=== PATIENT | male | born 1975 | race Caucasian/White ===

== ENCOUNTER → 2018-05-05 | Emergency (ER) | payer OTHER ==
[2018-05-06 00:22] LABS: ADD UMIC YES; UR ASCORBIC ACID 40 mg/dL (NEGATIVE); UR BILIRUBIN (Dip) NEGATIVE (NEGATIVE); UR BLOOD (Dip) 1+ mg/dL (NEGATIVE); UR CLARITY CLEAR (CLEAR); UR COLOR YELLOW (YELLOW); UR GLUCOSE (Dip) NEGATIVE (NEGATIVE); UR KETONES (Dip) NEGATIVE (NEGATIVE); UR LEUKOCYTE ESTERASE (Dip) NEGATIVE Leu/ul (NEGATIVE); UR NITRITE (Dip) NEGATIVE (NEGATIVE); UR RBC 1 /HPF (0-5); UR SPECIFIC GRAVITY (Dip) 1.021 (1.003-1.030); UR TOTAL PROTEIN (Dip) NEGATIVE (NEGATIVE); UR UROBILINOGEN (Dip) NEGATIVE (NEGATIVE); UR WBC 0 /HPF (0-5)
== END | disposition home or self-care (01) ==
LOC: FTE 22:43
DX: N50.812 Left testicular pain (principal); I10 Essential (primary) hypertension; E11.9 Type 2 diabetes mellitus without complications; Z79.84 Long term (current) use of oral hypoglycemic drugs
CPT/HCPCS: 76870; 81001; 87591; 99284-25

== ENCOUNTER 2018-06-24 21:11 | Observation (INO) | payer OTHER ==
[2018-06-24] MEDS: KETOROLAC 30 MG INJ IV (22:21)
[2018-06-24] MEDS: SOD CHLORIDE 0.9% 1,000 ML IV (22:21)
[2018-06-24] MEDS: ONDANSETRON 4 MG INJ IV ×2 (22:21→23:02)
[2018-06-24 22:24] LABS: WHITE BLOOD COUNT 7.9 10^3/ul (4.8-10.8)
[2018-06-24 22:24] LABS: HEMATOCRIT 48.4 % (42.0-52.0); HEMOGLOBIN 17.2 g/dl (14.0-18.0); MEAN CORPUSCULAR HEMOGLOBIN 29.3 pg (29.0-33.0); MEAN CORPUSCULAR HGB CONC 35.5 g/dl (32.0-37.0); MEAN CORPUSCULAR VOLUME 82.5 fl (82.0-101.0); MEAN PLATELET VOLUME 9.3 fl (7.4-10.4); PLATELET COUNT 320 10^3/UL (140-415); RED BLOOD COUNT 5.87 10^6/ul (4.70-6.10); RED CELL DISTRIBUTION WIDTH 12.1 % (11.5-14.5)
[2018-06-24 22:42] LABS: ADD MAN DIFF? YES; ALANINE AMINOTRANSFERASE 25 IU/L (13-69); ALBUMIN/GLOBULIN RATIO 1.35; ALKALINE PHOSPHATASE 93 IU/L (42-121); ANION GAP 15 (5-13); ASPARTATE AMINO TRANSFERASE 25 IU/L (15-46); BILIRUBIN,INDIRECT 0.5 mg/dl (0-1.1); BILIRUBIN,TOTAL 0.5 mg/dl (0.2-1.3); BLOOD UREA NITROGEN 16 mg/dl (7-20); CALCIUM 10.3 mg/dl (8.4-10.2); CARBON DIOXIDE 25 mmol/L (21-31); CHLORIDE 102 mmol/L (97-110); CREATININE 0.88 mg/dl (0.61-1.24); GLUCOSE 215 mg/dl (70-220); LIPASE 284 U/L (23-300); POTASSIUM 3.8 mmol/L (3.5-5.1); SODIUM 142 mmol/L (135-144); TOTAL PROTEIN 8.7 g/dl (6.1-8.1)
[2018-06-24 22:43] LABS: PARTIAL THROMBOPLASTIN TIME 27.6 Sec (23.0-35.0)
[2018-06-24 22:46] LABS: LACTIC ACID 5.8 mmol/L (0.5-2.0)
[2018-06-24] MEDS: morphine 4 MG/ML VIAL IV (22:57)
[2018-06-24] MEDS: SODIUM CHLORIDE 0.9% 1L BAG IV* (23:07)
[2018-06-24 23:30] LABS: ADD UMIC YES; UR ASCORBIC ACID NEGATIVE (NEGATIVE); UR BILIRUBIN (Dip) NEGATIVE (NEGATIVE); UR BLOOD (Dip) 2+ mg/dL (NEGATIVE); UR CLARITY CLEAR (CLEAR); UR COLOR YELLOW (YELLOW); UR GLUCOSE (Dip) 3+ mg/dL (NEGATIVE); UR KETONES (Dip) NEGATIVE (NEGATIVE); UR LEUKOCYTE ESTERASE (Dip) NEGATIVE Leu/ul (NEGATIVE); UR NITRITE (Dip) NEGATIVE (NEGATIVE); UR RBC 77 /HPF (0-5); UR SPECIFIC GRAVITY (Dip) 1.018 (1.003-1.030); UR TOTAL PROTEIN (Dip) NEGATIVE (NEGATIVE); UR UROBILINOGEN (Dip) NEGATIVE (NEGATIVE); UR WBC 0 /HPF (0-5)
[2018-06-24 23:34] LABS: GIANT THROMBO% (M) 1 % (0-0); LYMPHOCYTES #M 0.4 10^3/ul (0.8-2.9); LYMPHOCYTES % (M) 6 % (15-51); MONOCYTE #M 0.2 10^3/ul (0.3-0.9); MONOCYTES % (M) 3 % (0-11); PLATELET ESTIMATE NORMAL; SEGMENTED NEUTROPHILS (M) % 91 % (39-77); SMUDGE%M 11 % (0-0)
[2018-06-25 00:45] LABS: LACTIC ACID 2.4 mmol/L (0.5-2.0)
[2018-06-25] MEDS: HYDROmorphONE 1 MG/ML SYG IV (01:01)
[2018-06-25] MEDS: ONDANSETRON 4 MG INJ IV (01:01)
[2018-06-25] MEDS ORDERED: DOCUSATE SODIUM 100 MG CAP PO (02:30)
[2018-06-25] MEDS ORDERED: NACL 0.9% 3 ML SYG IV (02:30)
[2018-06-25] MEDS ORDERED: ONDANSETRON 4 MG INJ IV (02:30)
[2018-06-25] MEDS ORDERED: BISACODYL (EC) 5 MG TAB PO (02:30)
[2018-06-25 03:07] LABS: LACTIC ACID 1.1 mmol/L (0.5-2.0)
[2018-06-25] MEDS: CEFEPIME 2GM/50 ML (PMX) 50 ML IVPB (03:25)
[2018-06-25] MEDS: VANCOMYCIN 1 GM (PMX) 250 ML IVPB (04:00)
[2018-06-25 04:58] LABS: ADD MAN DIFF? NO
[2018-06-25 05:05] LABS: BASOPHILS % 0.1 % (0.0-2.0); HEMATOCRIT 43.1 % (42.0-52.0); HEMOGLOBIN 14.9 g/dl (14.0-18.0); LYMPHOCYTES # 0.7 10^3/ul (0.8-2.9); LYMPHOCYTES % 7.9 % (15.0-51.0); MEAN CORPUSCULAR HEMOGLOBIN 28.5 pg (29.0-33.0); MEAN CORPUSCULAR HGB CONC 34.6 g/dl (32.0-37.0); MEAN CORPUSCULAR VOLUME 82.6 fl (82.0-101.0); MEAN PLATELET VOLUME 9.4 fl (7.4-10.4); MONOCYTE # 0.2 10^3/ul (0.3-0.9); MONOCYTES % 2.1 % (0.0-11.0); NEUTROPHIL # 8.1 10^3/ul (1.6-7.5); NEUTROPHILS % 89.5 % (39.0-77.0); PLATELET COUNT 260 10^3/UL (140-415); RED BLOOD COUNT 5.22 10^6/ul (4.70-6.10)
[2018-06-25 05:05] LABS: WHITE BLOOD COUNT 9.1 10^3/ul (4.8-10.8)
[2018-06-25] MEDS: HYDROCODONE/APAP (5/325) TAB PO ×3 (05:10→18:40)
[2018-06-25] MEDS ORDERED: hydrALAzine 20 MG INJ IV (05:30)
[2018-06-25 05:50] LABS: ALANINE AMINOTRANSFERASE 28 IU/L (13-69); ALBUMIN 3.4 g/dl (3.3-4.9); ALBUMIN/GLOBULIN RATIO 1.09; ALKALINE PHOSPHATASE 64 IU/L (42-121); ANION GAP 11 (5-13); ASPARTATE AMINO TRANSFERASE 20 IU/L (15-46); BILIRUBIN,INDIRECT 0.5 mg/dl (0-1.1); BILIRUBIN,TOTAL 0.5 mg/dl (0.2-1.3); BLOOD UREA NITROGEN 12 mg/dl (7-20); CALCIUM 9.1 mg/dl (8.4-10.2); CARBON DIOXIDE 23 mmol/L (21-31); CHLORIDE 107 mmol/L (97-110); CREATININE 0.77 mg/dl (0.61-1.24); GLUCOSE 116 mg/dl (70-220); MAGNESIUM 1.7 mg/dl (1.7-2.5); POTASSIUM 4.2 mmol/L (3.5-5.1); SODIUM 141 mmol/L (135-144); TOTAL PROTEIN 6.5 g/dl (6.1-8.1)
[2018-06-25 06:10] LABS: THYROID STIMULATING HORMONE < 0.015 MIU/L (0.465-4.680)
[2018-06-25] MEDS: SOD CHLORIDE 0.9% 1,000 ML IV ×3 (06:36→16:45)
[2018-06-25 07:23] LABS: LACTIC ACID 1.4 mmol/L (0.5-2.0)
[2018-06-25] MEDS: [UNRECOGNIZED DRUG - REMARK] XX ×3 (08:00→23:24)
[2018-06-25] MEDS: FLUOXETINE 20 MG CAP PO ×3 (08:58→20:39)
[2018-06-25] MEDS: ATORVASTATIN 10 MG TAB PO (08:58)
[2018-06-25] MEDS ORDERED: NON-FORMULARY/PATIENT OWN MED (Lurasidone Hcl (Latuda) 80 MG) PO (09:00)
[2018-06-25] MEDS ORDERED: LISINOPRIL 10 MG TAB PO (09:00)
[2018-06-25 10:32] LABS: LACTIC ACID 2.2 mmol/L (0.5-2.0)
[2018-06-25 14:27] LABS: LACTIC ACID 2.5 mmol/L (0.5-2.0)
[2018-06-25] MEDS: LEVOFLOXACIN 500MG/D5W (PMX) 100 ML IVPB (15:13)
[2018-06-25] MEDS: LISINOPRIL 20 MG TAB PO (15:26)
[2018-06-25] MEDS: DOCUSATE SODIUM 100 MG CAP PO ×2 (15:26→20:45)
[2018-06-25] MEDS: ACETAMINOPHEN 325 MG TAB PO (16:52)
[2018-06-25 17:19] LABS: HIV 1&2 ANTIBODY NEGATIVE (NEGATIVE)
[2018-06-26] MEDS: SOD CHLORIDE 0.9% 1,000 ML IV ×2 (00:34→09:33)
[2018-06-26] MEDS: DIPHENHYDRAMINE 25 MG CAP PO (02:41)
[2018-06-26 05:36] LABS: ADD MAN DIFF? NO
[2018-06-26 05:49] LABS: BASOPHIL # 0.1 10^3/ul (0.0-0.1); BASOPHILS % 0.9 % (0.0-2.0); EOSINOPHILS # 0.1 10^3/ul (0.0-0.5); EOSINOPHILS % 0.8 % (0.0-7.0); HEMATOCRIT 39.6 % (42.0-52.0); HEMOGLOBIN 13.6 g/dl (14.0-18.0); LYMPHOCYTES # 2.6 10^3/ul (0.8-2.9); LYMPHOCYTES % 35.3 % (15.0-51.0); MEAN CORPUSCULAR HEMOGLOBIN 28.8 pg (29.0-33.0); MEAN CORPUSCULAR HGB CONC 34.3 g/dl (32.0-37.0); MEAN CORPUSCULAR VOLUME 83.9 fl (82.0-101.0); MEAN PLATELET VOLUME 9.6 fl (7.4-10.4); MONOCYTE # 0.9 10^3/ul (0.3-0.9); MONOCYTES % 12.3 % (0.0-11.0); NEUTROPHIL # 3.8 10^3/ul (1.6-7.5); NEUTROPHILS % 50.6 % (39.0-77.0); PLATELET COUNT 230 10^3/UL (140-415); RED BLOOD COUNT 4.72 10^6/ul (4.70-6.10); RED CELL DISTRIBUTION WIDTH 12.4 % (11.5-14.5)
[2018-06-26 05:49] LABS: WHITE BLOOD COUNT 7.5 10^3/ul (4.8-10.8)
[2018-06-26 06:10] LABS: LACTIC ACID 0.9 mmol/L (0.5-2.0)
[2018-06-26 07:22] LABS: ANION GAP 8 (5-13); BLOOD UREA NITROGEN 16 mg/dl (7-20); CALCIUM 8.7 mg/dl (8.4-10.2); CARBON DIOXIDE 27 mmol/L (21-31); CHLORIDE 108 mmol/L (97-110); CREATININE 0.86 mg/dl (0.61-1.24); GLUCOSE 86 mg/dl (70-220); MAGNESIUM 1.8 mg/dl (1.7-2.5); POTASSIUM 4.1 mmol/L (3.5-5.1); SODIUM 143 mmol/L (135-144)
[2018-06-26] MEDS: [UNRECOGNIZED DRUG - REMARK] XX (08:00)
[2018-06-26] MEDS: ATORVASTATIN 10 MG TAB PO (08:39)
[2018-06-26] MEDS: LISINOPRIL 20 MG TAB PO (08:39)
[2018-06-26] MEDS: DOCUSATE SODIUM 100 MG CAP PO (08:40)
== END 2018-06-26 12:10 | disposition home or self-care (01) ==
LOC: FTE 21:11 → PP2 06-25 02:04
DX: A41.9 Sepsis, unspecified organism (principal); N20.0 Calculus of kidney; N12 Tubulo-interstitial nephritis, not specified as acute or chronic; I10 Essential (primary) hypertension; E11.9 Type 2 diabetes mellitus without complications; E78.00 Pure hypercholesterolemia, unspecified; F31.9 Bipolar disorder, unspecified; E86.0 Dehydration; E78.5 Hyperlipidemia, unspecified; E03.9 Hypothyroidism, unspecified; N28.1 Cyst of kidney, acquired; Z79.84 Long term (current) use of oral hypoglycemic drugs
CPT/HCPCS: 36415; 71045; 74176; 76775; 80048; 80053; 81001; 83036; 83605; 83690; 83735; 84443; 85025; 85730; 86703; 87040; 87086; 87591; 93005; 96361; 96374; 96375; 96376; 99217; 99291-25; G0378

== ENCOUNTER 2019-03-31 01:01 | Emergency (ER) | payer OTHER | END 2019-03-31 02:38 | disposition left against medical advice (07) | LOC: FTE 01:01 | DX: Z53.21 Procedure and treatment not carried out due to patient leaving prior to being seen by health care provider (principal) ==